=== PATIENT | female | born 1945 | race Caucasian/White ===

== ENCOUNTER 2021-09-04 21:56 | Inpatient (IN) ==
[2021-09-04] MEDS ORDERED: PANTOPRAZOLE 40 MG VIAL IV STA (22:22)
[2021-09-04] MEDS ORDERED: ONDANSETRON 4 MG/2 ML VIAL IV STA (22:22)
[2021-09-04] MEDS ORDERED: SODIUM CHLORIDE 0.9% 500 ML IV STA (22:22)
[2021-09-04] MEDS ORDERED: HYDROmorphone 2 MG/1 ML VIAL IV STA (22:22)
[2021-09-04 22:27] LABS: Basophils % 0.1 % (0.0-0.8); Eosinophils % 0.3 % (0.00-10.9); Hematocrit 41.3 VOL% (35.7-47.0); Hemoglobin 13.4 GM/DL (12.0-16.0); Immature Granulocytes % 0.5 %; Immature Granulocytes Absolute 0.07 #; Lymphocytes # 1.2 10*3/uL (1.4-4.0); Lymphocytes % 7.7 % (21.3-54.2); Mean Corpuscular HGB Conc 32.4 GM/DL (32-36); Mean Corpuscular Volume 92.2 FL (87-102); Mean Platelet Volume 9.6 FL (9.6-12.0); Monocytes % 4.8 % (1.7-12.7); Neutrophils % 86.6 % (38.7-73.9); Platelet Count 274 T/CUMM (130-400); Red Blood Count 4.48 MC/CUMM (3.8-5.5); Red Cell Distribution Width 13.1 % (9.3-17.3); White Blood Count 14.9 T/CUMM (4-12)
[2021-09-04 22:41] LABS: Alanine Aminotransferase 25 U/L (13-56); Albumin 4.2 G/DL (3.4-5.0); Alkaline Phosphatase 61 U/L (45-117); Amylase 45 U/L (25-115); Aspartate Amino Transferase 17 U/L (0-37); Blood Urea Nitrogen 18 MG/DL (7-18); Calcium 10.4 MG/DL (8.5-10.1); Carbon Dioxide 26 MMOL/L (21-32); Estimated Glom Filtration Rate 48 ML/MIN; Glucose 150 MG/DL (74-106); Osmolality,Calculated 285.3 MOS/KG (273-304); Potassium 3.4 MMOL/L (3.5-5.1); Sodium 141 MMOL/L (136-145); Total Protein 7.8 G/DL (6.4-8.2)
[2021-09-04 23:22] LABS: Bilirubin,Urine Negative (Negative); Blood, Urine Negative (Negative); Glucose,Urine (UA) Negative (Negative); Hyaline Casts,Urine 1 /LPF (0-3); Ketones,Urine 20 mg/dL (Negative); Mucus,Urine Occasional /LPF (Occasional); Nitrite,Urine Negative (Negative); Protein,Urine Negative; RBC,Urine 3 /HPF (0-4); Urine Appearance CLEAR (Clear); Urine Color Yellow (Yellow); Urine Specific Gravity 1.014 (1.001-1.035); Urine Urobilinogen < 2.0 EU/DL (0.2-1.0)
[2021-09-05] MEDS ORDERED: HYDROmorphone 2 MG/1 ML VIAL IV PRN (02:04)
[2021-09-05] MEDS ORDERED: hydrALAZINE 20 MG/1 ML VIAL IV PRN (02:04)
[2021-09-05] MEDS ORDERED: GLUCAGON 1 MG VIAL IM PRN (02:04)
[2021-09-05] MEDS ORDERED: DEXTROSE 50% 25 GM/50 ML VIAL IV PRN (02:04)
[2021-09-05] MEDS: LACTATED RINGERS 1,000 ML IV SCH ×2 (03:20→17:04)
[2021-09-05] MEDS: cefTRIAXone 1,000 MG in SODIUM CHLORIDE 0.9% 100 ML IV SCH (03:20)
[2021-09-05 04:54] LABS: Basophils % 0.1 % (0.0-0.8); Hematocrit 40.9 VOL% (35.7-47.0); Immature Granulocytes % 0.3 %; Immature Granulocytes Absolute 0.04 #; Lymphocytes # 0.8 10*3/uL (1.4-4.0); Lymphocytes % 7.3 % (21.3-54.2); Mean Corpuscular HGB Conc 31.8 GM/DL (32-36); Mean Platelet Volume 9.6 FL (9.6-12.0); Monocytes % 2.1 % (1.7-12.7); Neutrophils % 90.2 % (38.7-73.9); Platelet Count 294 T/CUMM (130-400); Red Cell Distribution Width 13.2 % (9.3-17.3); White Blood Count 11.5 T/CUMM (4-12)
[2021-09-05 05:15] LABS: Albumin 3.8 G/DL (3.4-5.0); Bilirubin,Total 0.9 MG/DL (0.20-1.00); Calcium 9.8 MG/DL (8.5-10.1); Osmolality,Calculated 285.3 MOS/KG (273-304); Potassium 3.8 MMOL/L (3.5-5.1); Total Protein 7.6 G/DL (6.4-8.2)
[2021-09-05] MEDS: metroNIDAZOLE INJ 500 MG/100 ML PREMIX IV SCH ×3 (10:40→22:36)
[2021-09-05] MEDS: PANTOPRAZOLE 40 MG VIAL IV SCH (10:40)
[2021-09-05] MEDS ORDERED: ENOXAPARIN 40 MG/0.4 ML SYRINGE SUBCUT SCH (21:00)
[2021-09-05] MEDS ORDERED: CYCLOBENZAPRINE 10 MG TABLET PO SCH (21:00)
[2021-09-05] MEDS: DULoxetine 30 MG CAPSULE PO SCH (22:35)
[2021-09-06] MEDS: cefTRIAXone 1,000 MG in SODIUM CHLORIDE 0.9% 100 ML IV SCH (04:09)
[2021-09-06 04:34] LABS: Basophils % 0.2 % (0.0-0.8); Eosinophils # 0.3 10*3/uL (0.0-0.87); Eosinophils % 2.5 % (0.00-10.9); Hematocrit 35.1 VOL% (35.7-47.0); Hemoglobin 10.8 GM/DL (12.0-16.0); Immature Granulocytes % 0.4 %; Immature Granulocytes Absolute 0.04 #; Lymphocytes # 2.4 10*3/uL (1.4-4.0); Lymphocytes % 23.6 % (21.3-54.2); Mean Corpuscular HGB Conc 30.8 GM/DL (32-36); Mean Corpuscular Volume 96.2 FL (87-102); Mean Platelet Volume 10.3 FL (9.6-12.0); Monocytes % 8.3 % (1.7-12.7); Platelet Count 221 T/CUMM (130-400); Red Blood Count 3.65 MC/CUMM (3.8-5.5); Red Cell Distribution Width 13.6 % (9.3-17.3); White Blood Count 10.2 T/CUMM (4-12)
[2021-09-06 04:46] LABS: Calcium 8.5 MG/DL (8.5-10.1); Osmolality,Calculated 285.1 MOS/KG (273-304); Potassium 3.2 MMOL/L (3.5-5.1)
[2021-09-06] MEDS: LACTATED RINGERS 1,000 ML IV SCH ×2 (05:38→18:34)
[2021-09-06] MEDS: metroNIDAZOLE INJ 500 MG/100 ML PREMIX IV SCH ×2 (06:06→18:35)
[2021-09-06] MEDS ORDERED: POTASSIUM CHLORIDE RIDER 10 MEQ/100 ML PREMIX IV PRN (07:24)
[2021-09-06] MEDS ORDERED: AMITRIPTYLINE 25 MG TABLET PO SCH (09:00)
[2021-09-06] MEDS ORDERED: DULoxetine 30 MG CAPSULE PO SCH (09:00)
[2021-09-06] MEDS ORDERED: FUROSEMIDE 40 MG TABLET PO SCH (09:00)
[2021-09-06] MEDS ORDERED: POTASSIUM CHLORIDE 20 MEQ TABLET PO ONE (10:53)
[2021-09-06] MEDS: DULoxetine 30 MG CAPSULE PO SCH (11:24)
[2021-09-06] MEDS: PANTOPRAZOLE 40 MG VIAL IV SCH (11:25)
[2021-09-06 16:31] VITALS: BP 111/71
== END 2021-09-06 18:10 | disposition home or self-care (01) | DRG 390 ==
LOC: EDBD → EDUNIT# → N.ED 21:56 → SUATTDRO 09-05 02:04 → N.EDINP 09-05 02:04 → N.TELES 09-05 06:28
PROVIDERS: ADMIT Internal Medicine; ATTEND Internal Medicine